=== PATIENT | male | born 1975 | race Caucasian/White ===

== ENCOUNTER 2018-05-17 13:01 | Emergency (ER) | payer BC ==
--- NOTE | 2018-05-17 15:56 | RADIOLOGY REPORT (SQ) ---
EXAM DESCRIPTION: ANKLE LEFT COMPLETE COMPLETED DATE/TIME: 05/17/2018 3:46 pm REASON FOR STUDY: left ankle pain COMPARISON: None. NUMBER OF VIEWS: Three views. TECHNIQUE: AP, lateral, and oblique radiographic images acquired of the left ankle. LIMITATIONS: None. FINDINGS: MINERALIZATION: Normal. BONES: No fracture or dislocation. Dorsal calcaneal spur. Small os tibiale appear JOINTS: No effusions. SOFT TISSUES: No soft tissue swelling. No foreign body. OTHER: No other significant finding. IMPRESSION: No acute abnormality. Findings as described. TECHNICAL DOCUMENTATION: JOB ID: [id number] [email or web address]- All Rights Reserved Reading location - IP/workstation name: [email or web address]
--- NOTE | 2018-05-17 17:48 | RADIOLOGY REPORT (SQ) ---
EXAM DESCRIPTION: VENOUS UNILATERAL LOWER COMPLETED DATE/TIME: 05/17/2018 5:39 pm REASON FOR STUDY: left calf and ankle pain sent by [facility] COMPARISON: None. TECHNIQUE: Dynamic and static stephenson scale and color images acquired of the left leg venous system. Se lected spectral images acquired with additional compression and augmentation maneuvers. The contralat eral common femoral vein and saphenofemoral junction were also imaged. Images stored on PACS. LIMITATIONS: None. FINDINGS: COMMON FEMORAL: Normal phasicity, compression and augmentation. No visualized echogenic ma terial on stephenson scale. No defects on color images. FEMORAL: Normal compression and augmentation. No visualized echogenic material on stephenson scale. No defe cts on color images. POPLITEAL: Normal compression, augmentation. No visualized echogenic material on stephenson scale. No defec ts on color images. CALF VESSELS: Normal compression, augmentation. No visualized echogenic material on stephenson scale. No de fects on color images. GSV and SSV: Normal compression, augmentation. No visualized echogenic material on stephenson scale. No def ects on color images. ANY DEEP VENOUS INSUFFICIENCY: Not evaluated. ANY EVIDENCE OF POPLITEAL CYST: No. OTHER: No other significant finding. CONTRALATERAL COMMON FEMORAL VEIN AND SAPHENOFEMORAL JUNCTION: Normal phasicity, compression and augmentation. No visualized echogenic material on stephenson scale. No de fects on color images. IMPRESSION: NO EVIDENCE DVT OR SVT IN THE LEFT LEG. TECHNICAL DOCUMENTATION: JOB ID: [id number] [employer]- All Rights Reserved Reading location - IP/workstation name: [facility]-[email or web address]
--- NOTE | 2018-05-17 18:50 | ER Document Report ---
ED General - General Chief Complaint: Leg Pain Stated Complaint: LEG PAIN Time Seen by Provider: 05/17/18 14:53 TRAVEL OUTSIDE OF THE [place] IN LAST 30 DAYS: No - HPI Patient complains to provider of: Left leg pain Notes: Patient coming in for leg pain ongoing for last few days. Patient is concerned about blood clot. Patient states painful to ambulate on. Patient denies any injury denies any fevers chills nausea vomiting diarrhea. - Related Data Allergies/Adverse Reactions: No Known Allergies Allergy (Verified 05/17/18 13:02) Past Medical History - Social History Smoking Status: Former Smoker Frequency of alcohol use: Occasional Drug Abuse: None Family History: Reviewed & Not Pertinent Patient has suicidal ideation: No Patient has homicidal ideation: No Renal/ Medical History: Denies: Hx Peritoneal Dialysis Review of Systems - Review of Systems Constitutional: No symptoms reported EENT: No symptoms reported Cardiovascular: No symptoms reported Respiratory: No symptoms reported Gastrointestinal: No symptoms reported Genitourinary: No symptoms reported Male Genitourinary: No symptoms reported Musculoskeletal: Other - Left leg pain Skin: No symptoms reported Hematologic/Lymphatic: No symptoms reported Neurological/Psychological: No symptoms reported -: Yes All other systems reviewed and negative Physical Exam - Vital signs Vitals: Temp Pulse Resp BP Pulse Ox 98.0 F 84 16 126/83 H 96 05/17/18 13:32 05/17/18 13:32 05/17/18 13:32 05/17/18 13:32 05/17/18 13:32 Interpretation: Normal - General General appearance: Appears well, Alert - HEENT Head: Normocephalic, Atraumatic Eyes: Normal Pupils: PERRL - Respiratory Respiratory status: No respiratory distress Chest status: Nontender Breath sounds: Normal Chest palpation: Normal - Cardiovascular Rhythm: Regular Heart sounds: Normal auscultation Murmur: No - Abdominal Inspection: Normal Distension: No distension Bowel sounds: Normal Tenderness: Nontender Organomegaly: No organomegaly - Back Back: Normal, Nontender - Extremities General upper extremity: Normal inspection, Nontender, Normal color, Normal ROM , Normal temperature General lower extremity: Normal inspection, Nontender, Normal color, Normal ROM , Normal temperature. No: Normal weight bearing - Walking with a limping gait, Shahid's sign - Neurological Neuro grossly intact: Yes Cognition: Normal Orientation: AAOx4 Kennedy Coma Scale Eye Opening: Spontaneous Kennedy Coma Scale Verbal: Oriented Kennedy Coma Scale Motor: Obeys Commands Kennedy Coma Scale Total: 15 Speech: Normal Motor strength normal: LUE, RUE, LLE, RLE Sensory: Normal - Psychological Associated symptoms: Normal affect, Normal mood - Skin Skin Temperature: Warm Skin Moisture: Dry Skin Color: Normal Course - Re-evaluation Re-evalutation: 05/17/18 22:10 Patient does have some calf tenderness but no tenderness on palpation of the Achilles tendon. Patient is able to dorsiflex and plantar flex however it is painful. Ultrasound is not showing signs of this any significant pathology be patient x-ray also does not show any fracture. More likely muscle skeletal etiology patient's pain consistent examination with soleus and gastroc sprain. - Vital Signs Vital signs: Temp Pulse Resp BP Pulse Ox 98.0 F 70 18 123/70 100 05/17/18 19:03 05/17/18 19:03 05/17/18 19:03 05/17/18 19:03 05/17/18 19:03 Discharge - Discharge Clinical Impression: Left leg pain Condition: Good Disposition: HOME, SELF-CARE Instructions: Leg Pain Nonspecific ([facility]), Muscle Strain ([facility]) Additional Instructions: Your evaluation date is more consistent with a muscle strain. Your x-ray shows no signs of fracture your ultrasound shows no signs of blood clot. I would recommend taking Tylenol Motrin for pain control Ultram as prescribed for severe pain he may also apply warm compresses and ice packs to the area. Return to ER symptoms worsen. Prescriptions: Ibuprofen [Motrin 600 mg Tablet] 600 mg PO Q8HP PRN #21 tablet PRN Reason: Referrals: YONNY MITCHELL MD [Primary Care Provider] - Follow up as needed
[2018-05-17 19:03] VITALS: BP 123/70
== END 2018-05-17 19:03 | disposition home or self-care (01) ==
LOC: ER 13:01
DX: M79.605 Pain in left leg (principal); Z87.891 Personal history of nicotine dependence
CPT/HCPCS: 93971; 99284